=== PATIENT | male | born 1960 ===

== ENCOUNTER 2018-03-17 20:05 | Emergency (ER) | payer BC ==
[2018-03-17 20:19] VITALS: BP 125/79
--- NOTE | 2018-03-17 20:37 | UC ---
Ear Complaint HPI - HPI Summary HPI Summary: This patient is a 57 year old M presenting to [facility] with a chief complaint of left ear pain for the past five days after swimming during vacation. Reports decreased hearing from L ear. Pain worsened with chewing. Denies, rhinorrhea, sore throat, and trauma. He has noticed yellow and blood on a Q-tip. Pain is 2/ 10 in severity upon triage. - History of Current Complaint Chief Complaint: UCEar Stated Complaint: L EAR PAIN Time Seen by Provider: 03/17/18 20:29 Hx Obtained From: Patient Onset/Duration: Lasting Days Pain Intensity: 2 Pain Scale Used: 0-10 Numeric Alleviating Factors: Nothing Associated Signs/Symptoms: Positive: Hearing Loss - Allergies/Home Medications Allergies/Adverse Reactions: Allergies Allergy/AdvReac Type Severity Reaction Status Date / Time No Known Allergies Allergy Verified 03/17/18 20:18 Home Medications: Home Medications Aspirin 81 mg CHEW TAB* [Aspirin Low Dose TAB*] 81 mg PO DAILY 03/17/18 [ History Confirmed 03/17/18] Atorvastatin* [Lipitor*] 40 mg PO DAILY 03/17/18 [History Confirmed 03/17/18] Dipyridamole TAB* [Persantine TAB*] 50 mg PO DAILY 03/17/18 [History Confirmed 03/17/18] Metoprolol Succinate XL TAB* [Toprol XL TAB*] 25 mg PO DAILY 03/17/18 [History Confirmed 03/17/18] PMH/Surg Hx/FS Hx/Imm Hx Cardiovascular History: Other Other Cardiovascular History: aortic aneurysm - Surgical History Surgical History: Yes Surgery Procedure, Year, and Place: AORTIC ANEURYSM REPAIR, AORTIC VALVE REPLACEMENT (WITH TISSUE VALVE) 2009 - Family History Known Family History: Positive: Hypertension - Social History Lives: With Family Alcohol Use: Weekly Alcohol Amount: 5 TIMES/WEEK Substance Use Type: None Smoking Status (MU): Never Smoked Tobacco Review of Systems Constitutional: Negative ENT: Ear Ache - with hearing loss All Other Systems Reviewed And Are Negative: Yes Physical Exam - Summary Physical Exam Summary: General: well-appearing, no pain distress Skin: warm, color reflects adequate perfusion, dry Head: tenderness with palpation to face Eyes: EOMI, DESTINY ENT: R TM normal, L ear canal is swollen; ear drum still visible, tenderness with traction at the pinna and palpation of the face Neck: supple, nontender Respiratory: CTA, breath sounds present Cardiovascular: RRR Abdomen: soft, nontender Bowel: present Musculoskeletal: normal, strength/ROM intact Neurological: sensory/motor intact, A&O x3 Psychological: affect/mood appropriate Triage Information Reviewed: Yes Vital Signs: Initial Vital Signs Temp 98.5 F 03/17/18 20:15 Pulse 75 03/17/18 20:15 Resp 16 03/17/18 20:15 BP 125/79 03/17/18 20:15 Pulse Ox 95 03/17/18 20:15 Vital Signs Reviewed: Yes Ear Complaint Course/Dx - Course Course Of Treatment: F/U PMD; RECHECK SOONER IF WORSE. - Differential Dx/Diagnosis Provider Diagnoses: LEFT OTITIS EXTERNA Discharge - Sign-Out/Discharge Documenting (check all that apply): Patient Departure - Discharge Plan Condition: Stable Disposition: HOME Prescriptions: Amoxicillin/Clavulanate TAB* [Augmentin TAB 875*] 875 mg PO BID #19 tab Patient Education Materials: Otitis Externa (ED) Referrals: [facility] [Outside] Additional Instructions: FOLLOW UP WITH YOUR DOCTOR IF NOT COMPLETELY IMPROVED. GET RECHECKED FOR ANY WORSENING OF YOUR CONDITION OR QUESTIONS OR CONCERNS. - Billing Disposition and Condition Condition: STABLE Disposition: Home
[2018-03-17] MEDS ORDERED: Neomyc/Polym/HC 1% OTIC SUSP* **OTIC LEFT EAR ONE (20:38)
[2018-03-17] MEDS ORDERED: Amoxicillin/Clavulanate TAB* 875 MG PO ONE (20:39)
== END 2018-03-17 20:50 | disposition home or self-care (01) ==
LOC: UCEAST 20:05
DX: H60.92 Unspecified otitis externa, left ear (principal); Z95.2 Presence of prosthetic heart valve; Z82.49 Family history of ischemic heart disease and other diseases of the circulatory system
CPT/HCPCS: 99202; A9270-GY; G0463